=== PATIENT | male | born 1945 | race Caucasian/White ===

== ENCOUNTER → 2016-04-24 | Outpatient (CLI) | payer MEDICARE ==
[~2016-04-24] MED LIST: ALBU1AER INH; BENA20 PO; CARV25TA PO; GABA300C3 PO; GLUCTAB PO; LASI20TA PO; SPIR25TA PO; UMEC1INH INH; ZOCO40TA PO
[2016-04-24 11:06] LABS: AUTOMATED NEUTROPHIL # 5.1 TH/MM3 (1.8-7.7); BASOPHIL # 0.1 TH/MM3 (0-0.2); BASOPHIL % 0.8 % (0.0-2.0); EOSINOPHIL # 0.2 TH/MM3 (0-0.4); EOSINOPHIL % 2.6 % (0.0-4.0); HEMATOCRIT 32.2 % (39.0-51.0); HEMO FLAGS DIFF FINAL; LYMPHOCYTE # 1.3 TH/MM3 (1.0-4.8); MEAN CELL VOLUME 79.9 FL (80.0-100.0); MEAN CORPUSCULAR HEMOGLOBIN 26.9 PG (27.0-34.0); MEAN CORPUSCULAR HGB CONC 33.6 % (32.0-36.0); MONO % 8.5 % (0.0-8.0); NEUT % 70.1 % (16.0-70.0); PLATELET COUNT 174 TH/MM3 (150-450); RED BLOOD COUNT 4.02 MIL/MM3 (4.50-5.90); RED CELL DISTRIBUTION WIDTH 18.3 % (11.6-17.2); WHITE BLOOD COUNT 7.3 TH/MM3 (4.0-11.0)
[2016-04-24 11:25] LABS: BICARBONATE 28.7 MEQ/L (21.0-32.0); POTASSIUM 4.1 MEQ/L (3.5-5.1)
--- NOTE | 2016-04-24 14:42 | EKG ---
Date Performed: 04/24/2016 Time Performed: 12:31:40 PTAGE: 71 years EKG: Atrial fibrillation with controlled v. 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
== END ==
LOC: CLAB 10:49
PROVIDERS: ATTEND Orthopaedic Surgery Orthopaedic Surgery of the Spine
DX: Z01.810 Encounter for preprocedural cardiovascular examination (principal); Z01.818 Encounter for other preprocedural examination
CPT/HCPCS: 36415; 80048; 85025; 93005

== ENCOUNTER → 2016-04-27 | Day surgery (SDC) | payer MEDICARE ==
[~2016-04-27] MED LIST changes: +BACITRACIN IM FOR SOLN 50,000 UNIT VIAL ONE; +BUPIVACAINE HCL PF 0.75% 30 ML VIAL ONE; +GENTAMICIN SULFATE 80 MG/2 ML VIAL ONE; +LACTATED RINGER'S 1000 ML INJ 1,000 ML ONE; +LIDOCAINE 1.5%/EPINEPHrine 1:200,000 PF SOLN 30 ML AMP ONE; +MIDAZOLAM HCL 5 MG/ML VIAL (1 ML) ONE; +PROPOFOL 200 MG/20 ML AMP IV ONE; +SODIUM CHLORIDE 0.9% 20 ML VIAL ONE; +ceFAZolin INJ 1,000 MG VIAL ONE
--- NOTE | 2016-04-27 14:20 | TN ---
cc: CHRIS ROSS M.D. DATE OF SURGERY: April 27, 2016 PREOPERATIVE DIAGNOSIS 1. Left shoulder massive complete rotator cuff tendon tear. 2. Left shoulder impingement syndrome, osteoarthritis AC joint. POSTOPERATIVE DIAGNOSIS 1. Left shoulder massive complete rotator cuff tendon tear. 2. Left shoulder impingement syndrome, osteoarthritis AC joint. PROCEDURE Left shoulder rotator cuff tendon repair, NEER decompression acromioplasty, resection acromioclavicular joint, excision coracoacromial ligament. SURGEON Vinayak Ross MD [employer] ALIRIO Marks SPECIMEN None. ESTIMATED BLOOD LOSS Minimum. COMPLICATIONS None. ANESTHESIA Interscalene block, general anesthesia. DRAIN None. CONDITION Stable. PLAN OF ACTIVITY Per orders. PROCEDURE My anesthetic assistant ALIRIO Marks was present for the entire surgical case. She was medically necessary for the entire case because of the complexity of the case and to facilitate the performance of the procedure. The ADULT BASIC EDUCATION TEACHER at the back table was not a skill set for this case to manipulate the instruments e.g., the multiple different types of soft tissue retractors, suture passing material with the implants. The patient was brought to the operating room, had satisfactory interscalene anesthesia followed by general anesthesia by Dr. Geneva Calloway, the Department of Anesthesia. The patient was placed in a modified beach-chair position. Left shoulder, upper extremity down to including fingers was prepped and draped in the usual sterile manner. Small anterior exposure of the shoulder was made. All bleeders were coagulated. Dissection was carried through the skin and subcutaneous tissue. The tendinous portion of the deltoid was removed off the anterior aspect of the acromion and of the acromioclavicular joint. The patient was found to have a massive tear involving the supraspinatus and infraspinatus tendons. NEER decompression acromioplasty was performed using oscillating saw and a bur. Excision of the AC joint and distal clavicle was also performed. Excision CA ligament was performed. With this the patient was found to have satisfactory decompression of subacromial space. A bony trough was made in the greater tuberosity. This was done with a bur. Multiple #2 Tycron sutures were then woven within the supraspinatus, infraspinatus tendons, using concept suture passer, multiple holes were made in the proximal humerus and then the sutures were then brought to this area here to create multiple bone bridges. The patient was found to have an excellent repair of the rotator cuff tendon back into the trough in the proximal humerus. Multiple #2 Tycron sutures were then used with a 2-0 Nylon suture with a 2-0 drill bit. These were used to repair the tendinous portion of the deltoid back to the acromion. The wound was irrigated with copious amounts of saline. The wound itself was dry. The wound was closed in layers with 2-0 Vicryl. Skin was approximated with running subcuticular 2-0 Nylon. Sterile dressings were applied. The patient tolerated the procedure well and arrived in the recovery room in stable and satisfactory condition. MD FREDIS Menchaca/TLL /1:48 PM /1:55 PM
== END | disposition home or self-care (01) ==
LOC: ESDC 10:45
PROVIDERS: ATTEND Orthopaedic Surgery Orthopaedic Surgery of the Spine
DX: M75.122 Complete rotator cuff tear or rupture of left shoulder, not specified as traumatic (principal); M75.42 Impingement syndrome of left shoulder; M19.012 Primary osteoarthritis, left shoulder
CPT/HCPCS: 00450; 01630; 01991; 23120; 23420; 64417; J0690; J1580; J2250; J7120